=== PATIENT | female | born 1965 | race Caucasian/White ===

== ENCOUNTER 2016-09-06 05:01 | Inpatient (IN) | payer MEDICARE, BC ==
[~2016-09-06 05:01] MED LIST: Scopolamine 1.5 MG Transdermal Patch TOP SCH
[2016-09-06] MEDS ORDERED: Celecoxib 100 MG Cap PO ONE (06:00)
[2016-09-06] MEDS ORDERED: Dextrose 5%-Lactated Ringers 1,000 ML IV SCH ×3 (06:30→15:00)
[2016-09-06] MEDS ORDERED: cefOXitin 2 GM Vial ONE (06:51)
[2016-09-06] MEDS ORDERED: fentaNYL 250 MCG/5 ML SDV ONE (06:59)
[2016-09-06] MEDS ORDERED: Midazolam 1 MG/ML 2 ML SDV ONE (06:59)
[2016-09-06] MEDS ORDERED: Scopolamine 1.5 MG Transdermal Patch TOP SCH (07:00)
[2016-09-06] MEDS ORDERED: Propofol 200 MG/20 ML SDV ONE (07:00)
[2016-09-06] MEDS ORDERED: Rocuronium 50 MG/5 ML Vial ONE (07:00)
[2016-09-06] MEDS ORDERED: Succinylcholine/Normal Saline 200 MG/10 ML Syringe ONE (07:00)
[2016-09-06] MEDS ORDERED: Ondansetron 4 MG/2 ML SDV ONE (07:00)
[2016-09-06] MEDS ORDERED: Neostigmine Methylsulfate 1 MG/ML 5 ML Syringe ONE (07:00)
[2016-09-06] MEDS ORDERED: Dexamethasone 4 MG/ML SDV ONE (07:00)
[2016-09-06] MEDS ORDERED: Lactated Ringers 1,000 ML ONE (07:04)
[2016-09-06] MEDS ORDERED: cefOXitin 2 GM in Sodium Chloride 0.9% 50 ML IV ONE (07:15)
[2016-09-06] MEDS ORDERED: Ropivacaine 58 ML, Dexamethasone 8 MG, EPINEPHrine 0.4 MG, Sodium Chloride 0.9% 19.6 ML NERVRT SCH ×4 (08:00)
[2016-09-06] MEDS ORDERED: Lidocaine 2% 100 MG/5 ML Syringe IVPUSH ONE (08:00)
[2016-09-06] MEDS ORDERED: Ropivacaine 60 ML, Dexamethasone 8 MG, EPINEPHrine 0.4 MG, Sodium Chloride 0.9% 17.6 ML NERVRT SCH ×4 (08:00)
[2016-09-06] MEDS ORDERED: Ketamine 500 MG/5 ML MDV IV SCH (08:00)
[2016-09-06] MEDS ORDERED: Phenylephrine 1% 10 MG/ML SDV ONE (09:15)
[2016-09-06] MEDS ORDERED: fentaNYL 100 MCG/2 ML SDV IVPUSH ONE (11:00)
[2016-09-06] MEDS ORDERED: Insulin Aspart 100 Units/ML 3 ML Pen SUBCUT ONE (11:30)
[2016-09-06] MEDS ORDERED: Acetaminophen 1,000 MG in Premix Bag 1 BAG IV ONE (12:00)
[2016-09-06] MEDS ORDERED: oxyCODONE 5 MG Tab PO PRN (12:27)
[2016-09-06] MEDS ORDERED: Ondansetron 4 MG/2 ML SDV IVPUSH PRN (12:31)
[2016-09-06] MEDS ORDERED: SCOPOLAMINE PATCH ASK TOP SCH (12:31)
[2016-09-06] MEDS ORDERED: hydrOXYzine HCl 50 MG/ML SDV IM PRN (12:31)
[2016-09-06] MEDS ORDERED: HYDROmorphone/Normal Saline 15 MG/30 ML PCA IV PRN (12:31)
[2016-09-06] MEDS ORDERED: Naloxone 0.4 MG/ML SDV IV PRN (12:31)
[2016-09-06] MEDS ORDERED: Labetalol 20 MG/4 ML Syringe IVPUSH PRN (12:31)
[2016-09-06] MEDS ORDERED: Albuterol/Ipratropium 3.0-0.5 MG/3 ML Neb Soln INH PRN (12:35)
[2016-09-06] MEDS ORDERED: 50% Dextrose in Water 50 ML Syringe IVPUSH PRN (12:37)
[2016-09-06] MEDS ORDERED: Glucagon,Human Recombinant 1 MG Vial IM PRN (12:37)
[2016-09-06] MEDS ORDERED: Metoclopramide 10 MG/2 ML SDV IVPUSH PRN (12:38)
[2016-09-06] MEDS ORDERED: diphenhydrAMINE 50 MG/ML SDV IVPUSH PRN (12:39)
[2016-09-06] MEDS: Lidocaine 0.4%/D5W 2 GM/500 ML BAG IV SCH (13:11)
[2016-09-06] MEDS ORDERED: Pantoprazole 40 MG Vial IVPUSH SCH (14:00)
[2016-09-06] MEDS: cefOXitin 2 GM in Sodium Chloride 0.9% 50 ML IV SCH ×2 (14:19→20:47)
[2016-09-06] MEDS: Albuterol/Ipratropium 3.0-0.5 MG/3 ML Neb Soln INH SCH ×2 (14:38→20:47)
[2016-09-06] MEDS ORDERED: MVI, Adult with Vitamin K 10 ML, Thiamine 200 MG, Chromium/Copper/Mang/Selen/Zn 1 ML in... IV SCH ×4 (16:00)
[2016-09-06] MEDS: metFORMIN 500 MG Tab PO SCH (16:31)
[2016-09-06] MEDS: Insulin Aspart 100 Units/ML 3 ML Pen SUBCUT PRN ×2 (16:32→22:24)
[2016-09-06] MEDS: Heparin Sodium 5,000 Units/ML Vial SUBCUT SCH (17:05)
[2016-09-06] MEDS: Acetaminophen Soln 650 MG/20.3 ML UD Cup PO SCH (17:05)
[2016-09-07] MEDS: Acetaminophen Soln 650 MG/20.3 ML UD Cup PO SCH ×4 (00:24→18:09)
[2016-09-07] MEDS: Lidocaine 0.4%/D5W 2 GM/500 ML BAG IV SCH (01:02)
[2016-09-07] MEDS: cefOXitin 2 GM in Sodium Chloride 0.9% 50 ML IV SCH ×2 (02:07→09:00)
[2016-09-07] MEDS: Heparin Sodium 5,000 Units/ML Vial SUBCUT SCH ×2 (05:15→18:09)
[2016-09-07] MEDS: Insulin Aspart 100 Units/ML 3 ML Pen SUBCUT PRN ×2 (05:25→10:26)
[2016-09-07] MEDS: Albuterol/Ipratropium 3.0-0.5 MG/3 ML Neb Soln INH SCH ×4 (07:40→20:19)
[2016-09-07] MEDS ORDERED: Albuterol 8 GM Inhaler INH PRN (08:12)
[2016-09-07] MEDS ORDERED: Carvedilol 12.5 MG Tab PO SCH (09:00)
[2016-09-07] MEDS ORDERED: Non-Formulary Medication 1 Each (Lisinopril [Lisinopril] 40 MG) PO SCH (09:00)
[2016-09-07] MEDS ORDERED: DULOXETINE PO SCH (09:00)
[2016-09-07] MEDS: Celecoxib 100 MG Cap PO SCH (09:01)
[2016-09-07] MEDS: DULoxetine 30 MG Cap PO SCH (09:01)
[2016-09-07] MEDS: metFORMIN 500 MG Tab PO SCH ×2 (09:01→16:26)
[2016-09-07] MEDS: Lisinopril 20 MG Tab PO SCH (09:02)
[2016-09-07] MEDS: Torsemide 20 MG Tab PO SCH (09:02)
[2016-09-07] MEDS: SCOPOLAMINE PATCH CHECK TOP SCH (09:13)
[2016-09-07] MEDS ORDERED: Ondansetron 4 MG Tab.DIS PO PRN (10:43)
[2016-09-07] MEDS: HYDROmorphone 2 MG Tab PO PRN ×3 (10:59→20:20)
[2016-09-07] MEDS ORDERED: Clotrimazole 1% Crm 30 GM Tube TOP SCH (21:00)
[2016-09-08] MEDS: Acetaminophen Soln 650 MG/20.3 ML UD Cup PO SCH ×2 (00:39→05:51)
[2016-09-08] MEDS: Heparin Sodium 5,000 Units/ML Vial SUBCUT SCH (05:51)
[2016-09-08] MEDS: Albuterol/Ipratropium 3.0-0.5 MG/3 ML Neb Soln INH SCH (07:53)
[2016-09-08] MEDS: Celecoxib 100 MG Cap PO SCH (08:26)
[2016-09-08] MEDS: metFORMIN 500 MG Tab PO SCH (08:27)
[2016-09-08] MEDS: Torsemide 20 MG Tab PO SCH (08:27)
[2016-09-08] MEDS: DULoxetine 30 MG Cap PO SCH (08:27)
[2016-09-08] MEDS: HYDROmorphone 2 MG Tab PO PRN (08:32)
[2016-09-08] MEDS ORDERED: Cyanocobalamin (Vitamin B12) 1,000 MCG/ML SDV IM ONE (09:00)
[2016-09-08] MEDS ORDERED: Magnesium Hydroxide 400 MG/5 ML Susp 30 ML Cup PO ONE (09:24)
[2016-09-08] MEDS: SCOPOLAMINE PATCH CHECK TOP SCH (09:24)
[2016-09-08] MEDS: Lisinopril 20 MG Tab PO SCH (09:50)
[2016-09-08] MEDS: Insulin Aspart 100 Units/ML 3 ML Pen SUBCUT PRN (09:55)
--- NOTE | 2016-09-08 10:16 | PN ---
DATE OF SERVICE: 09/07/2016 SUBJECTIVE: Tessie is postop day #1. Her upper GI this morning was normal. Her pain has been managed and she is tolerating a step-1 gastric bypass diet. REVIEW OF SYSTEMS: Remainder of review of systems negative for any pertinent positives and negatives. OBJECTIVE: GENERAL: Tessie Barreto is a 50-year-old female. She is alert and orientated. VITAL SIGNS: TPR is 99, 76, 18. Blood pressure 149/79. HEENT: Negative. NECK: Supple. HEART: Regular rate and rhythm. LUNGS: Clear. ABDOMEN: Dressings dry and intact. LATIA drains are draining 20, 15, and a 115 respectively of a light serous drainage and abdominal binder has been on. EXTREMITIES: Without peripheral edema. ASSESSMENT: Laparoscopic gastric bypass surgery, liver biopsy, and small bowel resection for morbid obesity, marked hepatomegaly, and small bowel mesentery on 09/06/2016. PLAN: Decrease IV rate to 100 mL per hour. Discontinue Crump. Discontinue telemetry and continuous pulse ox. Start step-2 gastric bypass diet. Good pulmonary toilet encouraged. She was started on Dilaudid 2 mg 1 to 2 every 4 hours p.r.n. pain. Januvia 100 mg p.o. daily. We will evaluate p.r.n. or in a.m. Ladonna Luther PA-C /[id number]
[2016-09-08 11:05] VITALS: BP 101/62
--- NOTE | 2016-09-09 08:10 | DISCH ---
ADMISSION DIAGNOSES: 1. Morbid obesity. 2. Uncontrolled diabetes type 2. 3. Chronic obstructive pulmonary disease. 4. Hypertension. 5. Obstructive sleep apnea. 6. Peripheral edema. 7. Hyperlipidemia. 8. Reflux gastritis. DISCHARGE DIAGNOSES: 1. Laparoscopic Tina-en-Y gastric bypass surgery. 2. Liver biopsy. 3. Small bowel resection for morbid obesity. 4. Marked hepatomegaly on 09/06/2016. HISTORY: Tessie Barreto is a 50-year-old female with longstanding history of morbid obesity and increasing comorbidities. After preoperative evaluation and discussion of possible risks and possible complications, she wished to proceed with surgical procedure. HOSPITAL COURSE: The patient had her surgery on 09/06/2016. She had no operative complications. On postop day #1, her upper GI was normal. She was stated on step 2 gastric bypass diet. Her [employer]IAN was discontinued. She was started on oral pain medication and treated with Januvia for her diabetes. Blood sugars decreased at time of discharge, her last two blood sugars were 189 and 179, last hemoglobin A1c prior to surgery was 11.4. On postop day 2, Tessie's activity was good. Her pain was well managed. She tolerated the diet well. She had adequate postoperative teaching and she received B12 1000 mcg IM injection. She was ready to be discharged to home. PHYSICAL EXAMINATION: VITAL SIGNS: Tessie Barreto is a 50-year-old female. Height is 5 feet 2 inches. Weight is 256 pounds. BMI is 46. TPR 99.1, 76, 18, blood pressure 149/79. HEENT: Negative. NECK: Supple. HEART: Regular rate and rhythm. LUNGS: Clear. ABDOMEN: 4x4s over LATIA drain sites. Incision looks good. Abdominal binder is on. EXTREMITIES: Without peripheral edema. DISPOSITION: Discharged to home. CONDITION: Stable and improving. FOLLOWUP APPOINTMENT: With Ladonna Luther PA-C, on 09/17/2016 at 10:00 a.m. at [place], [place]. HOME MEDICATIONS: Tylenol 650 mg per 20.3 mL one dose every 6 hours p.r.n. pain. Celebrex 200 mg oral daily for 1 week, vitamin B12 2500 mcg sublingual daily #100, Dilaudid 2 mg 1 to 2 every 4 hours p.r.n. pain #50, milk of magnesia 30 mL oral daily two doses were sent home with patient to take one now and repeat in a.m. Zofran 4 mg ODT q.4 hours p.r.n. nausea #30. She is to resume taking her albuterol and Ventolin inhaler 2 puffs every 4 hours, carvedilol 18.25 mg oral twice daily, clotrimazole 1 applicator vaginal at bedtime, Cymbalta 30 mg daily, Zetia 10 mg every evening, lisinopril 40 mg oral daily, torsemide 20 mg oral daily, Chantix 1 mg oral daily, Lipitor 80 mg oral daily, and Janumet XR 100/1000 mg oral daily. She is to discontinue taking the calcium carbonate, vitamin D3 and vitamin B complex until she is instructed to restart those. DIET AFTER DISCHARGE: Step 2 gastric bypass diet with no cereal. Drink 8 to 10 glasses of water a day. ACTIVITY AFTER DISCHARGE: No lifting greater than 10 pounds for 2 weeks. Other activity, walk 8 times daily inside your home. Driving, do not drive on pain medication. May shower. Notify provider if any fever, increased pain, swelling, redness, drainage, nausea, or vomiting. WOUND INCISION CARE: Keep site clean and dry, wear abdominal binder for 2 weeks and as tolerated. SPECIAL INSTRUCTIONS: 1. Check blood sugars twice a day and call results to clinic on Friday09/10/2016, bring record of results to clinic appointments. 2. Use incentive spirometer 10 times every hour while awake. 3. Keep a journal of protein and fluid intake and bring to clinic appointments.
--- NOTE | 2016-09-09 09:36 | OR ---
DATE OF PROCEDURE: 09/06/2016 PREOPERATIVE DIAGNOSIS: Morbid obesity. POSTOPERATIVE DIAGNOSES: 1. Morbid obesity. 2. Extreme hepatomegaly. 3. Foreshortened small bowel mesentery requiring small bowel resection to allow adequate mobility of small-bowel to complete gastrojejunostomy. OPERATIVE PROCEDURES: Bilateral subcostal transverse abdominis plane blocks (85600). Diagnostic laparoscopy with: 1. Laparoscopic Tina-en-Y gastric bypass with long limb gastroenterostomy (45355). 2. Elton-Cut needle liver biopsy (53400). 3. Small bowel resection (47802). ANESTHESIA: General. TRANSPORT TECH: Ladonna Luther PA-C. INDICATIONS FOR PROCEDURE: A 50-year-old female with longstanding morbid obesity presenting with progressively worsening comorbidities. After preoperative evaluation and discussion, she wished to proceed with a gastric bypass procedure. Potential risks of the procedure including bleeding, infection, injury to underlying viscera, problems with leaks from various GI tract closures, bowel obstruction over time as well as possibility of cardiopulmonary, septic, or hemorrhagic complications leading to were discussed, and the patient wishes to proceed. DETAILS OF THE PROCEDURE: The patient was taken to the operating room. After general endotracheal anesthesia was induced, she placed in a lithotomy position and a Crump catheter was inserted. At this point, using ultrasound guidance, bilateral transversalis plane. Blocks were placed with a combination of ropivacaine, dexamethasone, epinephrine, and sodium chloride 40 mL of the solution was injected on each side under direct ultrasound vision into the area of the transversus abdominis plane and this subcostal area. Following this, the abdomen was prepped and draped and oral gastric tube was placed. At 15 cm inferior, 5 cm left of xiphoid process, a transverse incision was made and the peritoneal cavity was entered under direct vision with an Optiview trocar and inflated to 15 mmHg pressure with CO2. A laparoscope was then reinserted. No underlying trocar insertion site injuries were seen. Following this, 5 additional trocars were placed across the upper and mid abdomen and general exploration was undertaken. The patient was noted to have a strikingly large liver and with this being grossly fatty infiltrated. There was no gross cirrhotic changes and no significant portal hypertension evident within the mesentery of the venous system. Elton-Cut needle liver biopsies were obtained from the left lobe of the liver. Minimal bleeding from the biopsy sites was controlled with electrocautery. The omentum was then divided in the midline up to the level of the transverse colon. This allowed identification of the small bowel at the ligament of Treitz. Small bowel was then traced up to 200 cm distal to that point, tacked transversely with a ANTONIA stapler. Small bowel was then traced up to additional 200 cm where the [id number] enteroenterostomy was accomplished with internal firing of the Endo-ANTONIA 60-mm stapler. The common opening was then closed transversely with the same stapler and angles were anastomosed and mesenteric defect approximated with some 0-Ethibond stitch along with fibrin sealant. Divided Tina limb was then brought up through the antecolic approach. The patient had a fairly thickened and foreshortened mesentery which may bring this up to the level because of the diaphragm, overly tight and eventually roughly 20 cm of the upper end of the Tina limb was resected. This lengthened the mesenteric region of the Tina limb to the point that it came out of the wall to the area of the gastroesophageal junction. These small-bowel specimen was then delivered from the field after had been divided with a ANTONIA stapler. At this point, the liver was retracted anteriorly. We were able to have the liver fall as a solid block more or less towards the right with a retractor placed under the liver and fixed at the level of the esophagogastric junction. No significant hiatal hernia was evident. Gastrointestinal balloon catheter was then inflated to 15 mL and pulled up snugly against the EG junction and the stomach over the apex balloon was then marked with electrocautery and the gastrointestinal balloon catheter deflated and pulled up in the esophagus. The lesser omental tissue adjacent to gastric cardia was then incised allowing the dissection behind the stomach at the level cauterized aida at the gastric cardia. The initial pouch formation was noted prior to the stomach fairly thick so the first firing was with a ANTONIA black load. The remaining of the firings were ANTONIA purple and blue loads and after completion of the pouch, it was felt to be somewhat overly elongated and some of the end of the pouch was then excised with a ANTONIA black load as well. At this point, the anvil of the 25 mm EEA stapler was attached to a [place] sump, brought down through the mouth and allowing the anvil likewise to be pulled down within the gastric pouch. The divided end of the Tina limb was then opened and main body EEA stapler was passed several centimeters into the lumen of the small bowel, brought up and the anvil united with it, thus creating the gastrojejunostomy. Upon removal of the stapler, double donuts of mucosa were noted within and the small bowel was closed off with a vascular staple line. Gastrojejunostomy was then reinforced with some 3-0 Vicryl seromuscular stitch along with fibrin sealant. Leak test was accomplished with injection of 120 mL of air in the gastric pouch while submerged with a cefoxitin containing saline solution. No leaks were identified. Two Boaz-Anderson drains were then placed adjacent to the gastrojejunostomy and taken out of the subcostal trocar sites with no further problems noted. Trocars were removed. The peritoneal cavity was deflated. Incisions were closed with some 4-0 Vicryl skin stitch as was the drains and the patient was taken to the recovery room in a satisfactory condition. Physician health care assistant, Ladonna Luther, played an essential role in assisting in this case, helping to position the patient, retract structures as needed, as well as suturing and cutting sutures as indicated. Her presence improved the patient's safety and decreased operative time. Jacob Campbell MD /[id number]
--- NOTE | 2016-09-09 09:38 | CR ---
Status post Tina-en-Y. Surgical drains upper stomach. Contrast within the small bowel. No gross evid ence for leakage.
== END 2016-09-08 13:14 | disposition home or self-care (01) | DRG 621 ==
LOC: JP.SDS 05:01 → JP.MS 05:01 → EDSTATUS 11:00 → JP.2SS 12:10
PROVIDERS: ADMIT Surgery; ATTEND Surgery
PROC: 0D164ZA Bypass Stomach to Jejunum, Percutaneous Endoscopic Approach (ICD-10-PCS; principal; 2016-09-06)
PROC: 0FB24ZX Excision of Left Lobe Liver, Percutaneous Endoscopic Approach, Diagnostic (ICD-10-PCS; principal; 2016-09-06)
PROC: 0DB63ZZ Excision of Stomach, Percutaneous Approach (ICD-10-PCS; principal; 2016-09-06)
PROC: 0DB84ZZ Excision of Small Intestine, Percutaneous Endoscopic Approach (ICD-10-PCS; principal; 2016-09-06)
DX: E66.01 Morbid (severe) obesity due to excess calories (principal); E11.65 Type 2 diabetes mellitus with hyperglycemia; J44.9 Chronic obstructive pulmonary disease, unspecified; I10 Essential (primary) hypertension; R16.0 Hepatomegaly, not elsewhere classified; G47.33 Obstructive sleep apnea (adult) (pediatric); R60.9 Edema, unspecified; E78.5 Hyperlipidemia, unspecified; K21.9 Gastro-esophageal reflux disease without esophagitis; Z68.42 Body mass index [BMI] 45.0-49.9, adult; Z79.84 Long term (current) use of oral hypoglycemic drugs
CPT/HCPCS: 36415; 74240; 74240-26; 80048; 82962; 83735; 83880; 84100; 86850; 86900; 86901; 88307; 94640; 94640-76; A9270-GY; C9113; J0131; J0171; J0694; J1100; J1170; J1644; J2001; J2250; J2370; J2405; J2704; J2795; J3010; J3411; J3420; J7030; J7042; J7050; J7120; J7620